=== PATIENT | female | born 1955 | race Caucasian/White ===

== ENCOUNTER 2018-08-11 07:51 | Outpatient (REF) | payer OTHER, SELFPAY ==
[2018-08-11 12:34] LABS: TSH (W/Ref FT4) 1.13 uIU/mL (0.358-3.74)
== END 2018-08-11 08:11 ==
LOC: NCHCN 07:51
PROVIDERS: PCP Nurse Practitioner Family; Visit Provider Nurse Practitioner Family
DX: E03.9 Hypothyroidism, unspecified (principal)
CPT/HCPCS: 84443

== ENCOUNTER 2018-08-25 10:20 | Outpatient (REF) | payer OTHER, SELFPAY ==
--- NOTE | 2018-08-25 08:30 | PAPFT_PTH ---
PATIENT: Hayley Guzman LOC: [facility] U#:[id number] AGE/SX: 63/F ROOM: RE08/25/[address]: Va Noel : 1955 BED: DIS: 08/25/2018 SPEC #: [id number] RECD: 08/25/18 18:01 STATUS: MIRLANDE RENazanin #: [id number] KENDRA: 08/25/18 08:[address]: Va Noel DEPT: [facility] Cytology RECD BY: Batsheva Sosa Tissues: 1 - CX/ENDOCX FOR PAP SMEARS Procedures: PAP THIN PREP/UVM Screening HPV DNA PROBE Comments: [id number]
== END 2018-08-25 10:40 ==
LOC: NCHCN 10:20
PROVIDERS: PCP Nurse Practitioner Family; Visit Provider Nurse Practitioner Family
DX: Z00.00 Encounter for general adult medical examination without abnormal findings (principal); Z12.4 Encounter for screening for malignant neoplasm of cervix; Z11.51 Encounter for screening for human papillomavirus (HPV)
CPT/HCPCS: 88142; 87624

== ENCOUNTER 2018-09-08 07:43 | Outpatient (REF) | payer OTHER, SELFPAY ==
[2018-09-08 13:38] LABS: Calculated LDL 141 mg/dL; Cholesterol 237 mg/dL (50-200); HDL Cholesterol 66 mg/dL (40-60); Triglyceride 153 mg/dL (30-150)
== END 2018-09-08 08:03 ==
LOC: NCHCN 07:43
PROVIDERS: PCP Nurse Practitioner Family; Visit Provider Nurse Practitioner Family
DX: E78.5 Hyperlipidemia, unspecified (principal)
CPT/HCPCS: 80061; 83721

== ENCOUNTER 2018-09-09 00:47 | Outpatient (CLI) | payer OTHER, SELFPAY ==
--- NOTE | 2018-09-09 11:00 | DI.MAMMO_ITS ---
SYMPTOMS/DIAGNOSIS: SCREENING, Z12.39 MAMMOGRAMS: Mammograms were interpreted according to the usual protocol including computer analysis with CAD system, tomosynthesis and C view imaging. The breast tissue is heterogeneously radiodense, which lowers the sensitivity of the study. There is no dominant mass. There are no suspicious calcifications and there has been no significant interval change when compared with prior images. SUMMARY: No evidence of malignancy, category 1. Yearly screening mammography is recommended. Breast density category C. MQSA ASSESSMENT OF FINDINGS: Negative. Category 1. Patient will receive a letter notifying them of these results. Bi-RADS category C. The breasts are heterogeneously dense, which may obscure small masses.
== END 2018-09-09 01:07 ==
PROVIDERS: PCP Nurse Practitioner Family; Visit Provider Nurse Practitioner Family
DX: Z12.31 Encounter for screening mammogram for malignant neoplasm of breast (principal)
CPT/HCPCS: 77063; 77067

== ENCOUNTER 2020-08-29 16:37 | Outpatient (REF) | payer BC, SELFPAY ==
[2020-08-29 20:43] LABS: Hemoglobin A1C 5.8 % (<5.7)
[2020-08-29 21:02] LABS: Anion Gap 12.2 mmol/L (3-11); BUN 15 mg/dL (7-18); CO2 23.8 mmol/L (21.0-32.0); CREATININE 0.9 mg/dL (0.55-1.02); Calcium 9.2 mg/dL (8.5-10.1); Calculated LDL 129 mg/dL (<100); Chloride 105 mmol/L (98-107); Cholesterol 231 mg/dL (<200); Glucose 93 mg/dL (74-106); HDL Cholesterol 60 mg/dL (40-60); Potassium 4.1 mmol/L (3.5-5.1); Sodium 141 mmol/L (136-145); Triglyceride 210 mg/dL (<150)
[2020-08-30 17:41] LABS: TSH 1.57 uIU/mL (0.36-3.74)
== END 2020-08-29 16:38 | disposition home or self-care (01) ==
LOC: NCHCN 16:37
PROVIDERS: PCP Nurse Practitioner Family; Visit Provider Nurse Practitioner Family
DX: Z00.00 Encounter for general adult medical examination without abnormal findings (principal); E78.5 Hyperlipidemia, unspecified; E03.9 Hypothyroidism, unspecified; R73.9 Hyperglycemia, unspecified
CPT/HCPCS: 80048; 80061; 83036; 84443

== ENCOUNTER 2020-09-19 01:32 | Outpatient (CLI) | payer BC, SELFPAY ==
--- NOTE | 2020-09-19 | DI.MAMMO_ITS ---
Exam(s) US BREAST RT LIMITED MG MAMMO SCREENING EXAM: MAMMO SCREENING CLINICAL HISTORY: SCREENING, Z12.39. TECHNIQUE: Craniocaudal and mediolateral oblique Full Field Digital Mammography views with Computer Aided Diagnosis followed by Tomosynthesis and right breast ultrasound. COMPARISON: 2019 mammogram US US BREAST RT LIMITED from 09/19/2020 FINDINGS: Mammography/Tomosynthesis: Masses/Architectural Distortion: Right breast: Dense lobulated and spiculated mass superior right sal ast, at 12 o'clock, in the posterior tissue, measuring approximately 3 cm in greatest dimension.. No additional masses. Left breast: No masses or echotexture distortion seen. Microcalcifictions: No suspicious pleomorphic-type are seen. Skin Thickening/Nipple Retraction: None. Right breast US: Cyst: None. Solid lesions: Irregular hypoechoic shadowing mass measuring 2.9 x 1.9 by 1.7 cm located in the 12 o' clock position 8 cm from the nipple... Ductal dilation: None. IMPRESSION: 1. 3 centimeter suspicious spiculated mass 12 o'clock position posterior right breast. Biopsy is rec ommended for further evaluation. 2. The findings were discussed with the provider Va Noel and the patient on the date of the exa mination. BI-RADS Category 5 - Highly Suggestive of Malignancy: Biopsy recommended Breast Density - Category C - Heterogeneously dense Breast density category C or D implies that the patient has dense breast tissue. Dense breast tissue is very common and is not abnormal but dense breast tissue can make it harder to find cancer on a ma mmogram. Also, dense breast tissue may increase their breast cancer risk. This information about the result of the mammogram report was provided to the patient to raise their awareness. Use this report when you speak with the patient about their risks for breast cancer, which includes their family hist ory. At that time, you may recommend for more screening tests (Ultrasound or MRI) as they might be us eful based on their risk. A negative radiographic report should not delay biopsy if a dominant or clinically suspicious mass is present. Up to ten percent of cancers are not identified on mammography. A negative report may reinforce clinical impression. Adenosis and dense breasts may obscure an underlying neoplasm. False positive reports average 6 to 10%. Patient will receive a letter notifying them of these results.
== END 2020-09-19 01:52 ==
PROVIDERS: PCP Nurse Practitioner Family; Visit Provider Nurse Practitioner Family
DX: Z12.31 Encounter for screening mammogram for malignant neoplasm of breast (principal); R92.8 Other abnormal and inconclusive findings on diagnostic imaging of breast
CPT/HCPCS: 76642; 77063; 77067

== ENCOUNTER 2021-03-20 02:02 | Outpatient (CLI) | payer BC, SELFPAY ==
[2021-03-20 12:05] LABS: Abs Immature Grans 0.01 10^3/uL (0.0-0.06); Absolute Basophil Count 0.01 10^3/uL (0.0-0.2); Absolute Eosinophil Count 0.06 10^3/uL (0.0-0.7); Absolute Lymphocyte Count 1.49 10^3/uL (1.2-3.4); Absolute Monocyte Count 0.46 10^3/uL (0.1-0.8); Absolute Neutrophil Count 5.09 10^3/uL (1.2-6.7); Basophils % 0.1; Eosinophils % 0.8; HCT 45.9 % (36.0-46.0); HGB 14.9 g/dL (11.2-15.7); Immature Grans % 0.1; Lymphocytes % 20.9; MCH 31.2 pg (27.0-33.0); MCHC 32.5 % (32.0-36.0); MCV 96.2 fL (80-95); MPV 9.7 fL (8.0-11.0); Monocytes % 6.5; Neutrophils % 71.6; Nucleated RBC 0 %; Platelet Count 303 10^3/uL (130-400); RBC 4.77 10^6/uL (3.93-5.22); RDW 13.6 % (11.7-14.6); RDW-SD 48.9 fL; WBC 7.12 10^3/uL (4.4-10.8)
[2021-03-20 12:18] LABS: ALT 31 U/L (14-59); AST 23 U/L (15-37); Alkaline Phosphatase 111 U/L (46-116); Anion Gap 11.6 mmol/L (3-11); BUN 16 mg/dL (7-18); Bilirubin, Total 0.4 mg/dL (0.2-1.0); CO2 27.4 mmol/L (21.0-32.0); CREATININE 0.9 mg/dL (0.55-1.02); Calcium 9.3 mg/dL (8.5-10.1); Chloride 103 mmol/L (98-107); Glucose 124 mg/dL (74-106); Potassium 3.8 mmol/L (3.5-5.1); Sodium 142 mmol/L (136-145); Total Protein 8.5 g/dL (6.4-8.2)
== END 2021-03-20 02:03 | disposition home or self-care (01) ==
LOC: LBO 02:02
PROVIDERS: PCP Nurse Practitioner Family; Visit Provider Internal Medicine Medical Oncology
DX: C50.411 Malignant neoplasm of upper-outer quadrant of right female breast (principal); Z17.0 Estrogen receptor positive status [ER+]
CPT/HCPCS: 36415; 80053; 85025

== ENCOUNTER 2021-09-19 12:26 | Outpatient (REF) | payer BC, SELFPAY ==
[2021-09-19 12:48] LABS: ALT 22 U/L (14-59); AST 18 U/L (15-37); Albumin 3.9 g/dL (3.4-5.0); Alkaline Phosphatase 80 U/L (46-116); Anion Gap 11.4 mmol/L (3-11); BUN 18 mg/dL (7-18); Bilirubin, Total 0.5 mg/dL (0.2-1.0); CO2 24.6 mmol/L (21.0-32.0); CREATININE 0.8 mg/dL (0.55-1.02); Chloride 104 mmol/L (98-107); Glucose 111 mg/dL (74-106); Potassium 3.9 mmol/L (3.5-5.1); Sodium 140 mmol/L (136-145); Total Protein 8.1 g/dL (6.4-8.2)
== END 2021-09-19 12:27 | disposition home or self-care (01) ==
LOC: LBN 12:26
PROVIDERS: PCP Nurse Practitioner Family; Visit Provider Internal Medicine Medical Oncology
DX: C50.411 Malignant neoplasm of upper-outer quadrant of right female breast (principal); M81.0 Age-related osteoporosis without current pathological fracture; Z17.0 Estrogen receptor positive status [ER+]
CPT/HCPCS: 80053

== ENCOUNTER 2021-10-09 19:43 | Outpatient (REF) | payer BC, SELFPAY ==
[2021-10-09 14:32] LABS: Hemoglobin A1C 5.8 % (<5.7)
[2021-10-09 14:41] LABS: TSH (W/Ref FT4) 0.31 uIU/mL (0.36-3.74)
[2021-10-09 15:03] LABS: FREE T4 1.48 ng/dL (0.76-1.46)
== END 2021-10-09 19:44 | disposition home or self-care (01) ==
LOC: NCHCN 19:43
PROVIDERS: PCP Nurse Practitioner Family; Visit Provider Nurse Practitioner Family
DX: E03.9 Hypothyroidism, unspecified (principal); R73.03 Prediabetes
CPT/HCPCS: 83036; 84439; 84443

== ENCOUNTER 2021-12-04 18:09 | Outpatient (REF) | payer BC, SELFPAY ==
[2021-12-04 18:44] LABS: Anion Gap 9.9 mmol/L (3-11); BUN 20 mg/dL (7-18); CO2 26.1 mmol/L (21.0-32.0); CREATININE 0.9 mg/dL (0.55-1.02); Calcium 9.3 mg/dL (8.5-10.1); Calculated LDL 131 mg/dL (<100); Chloride 102 mmol/L (98-107); Cholesterol 234 mg/dL (<200); Estimated GFR 70.51 (mL/min/1.73m2); Glucose 110 mg/dL (74-106); HDL Cholesterol 75 mg/dL (40-60); Potassium 4.6 mmol/L (3.5-5.1); Sodium 138 mmol/L (136-145); Triglyceride 140 mg/dL (<150)
== END 2021-12-04 18:10 | disposition home or self-care (01) ==
LOC: NCHCN 18:09
PROVIDERS: PCP Nurse Practitioner Family; Visit Provider Nurse Practitioner Family
DX: R73.03 Prediabetes (principal); R03.0 Elevated blood-pressure reading, without diagnosis of hypertension; Z00.00 Encounter for general adult medical examination without abnormal findings; E78.5 Hyperlipidemia, unspecified
CPT/HCPCS: 80048; 80061

== ENCOUNTER 2022-08-21 03:11 | Outpatient (CLI) | payer MEDICARE, SELFPAY ==
[2022-08-21 07:34] LABS: ALT 23 U/L (14-59); AST 20 U/L (15-37); Albumin 3.9 g/dL (3.4-5.0); Alkaline Phosphatase 95 U/L (46-116); Anion Gap 9.8 mmol/L (3-11); BUN 16 mg/dL (7-18); Bilirubin, Total 0.3 mg/dL (0.2-1.0); CO2 25.2 mmol/L (21.0-32.0); CREATININE 0.9 mg/dL (0.55-1.02); Calcium 9.3 mg/dL (8.5-10.1); Chloride 105 mmol/L (98-107); Estimated GFR 70.07 (mL/min/1.73m2); Glucose 122 mg/dL (74-106); Potassium 4.6 mmol/L (3.5-5.1); Sodium 140 mmol/L (136-145); Total Protein 8.1 g/dL (6.4-8.2)
== END 2022-08-21 03:12 | disposition home or self-care (01) ==
PROVIDERS: Physician Assistant; PCP Nurse Practitioner Family
DX: M81.0 Age-related osteoporosis without current pathological fracture (principal); E03.9 Hypothyroidism, unspecified; Z85.3 Personal history of malignant neoplasm of breast; R73.09 Other abnormal glucose
CPT/HCPCS: 36415; 80053

== ENCOUNTER 2022-12-10 16:05 | Outpatient (REF) | payer MEDICARE, SELFPAY ==
[2022-12-10 19:56] LABS: Abs Immature Grans 0.03 10^3/uL (0.0-0.06); Absolute Basophil Count 0.02 10^3/uL (0.0-0.2); Absolute Monocyte Count 0.49 10^3/uL (0.1-0.8); Absolute Neutrophil Count 5.55 10^3/uL (1.2-6.7); Basophils % 0.2; Eosinophils % 1.2; HCT 44.2 % (36.0-46.0); HGB 14.5 g/dL (11.2-15.7); Immature Grans % 0.4; Lymphocytes % 26.2; MCH 31.2 pg (27.0-33.0); MCHC 32.8 % (32.0-36.0); MCV 95 fL (80-95); MPV 10.1 fL (8.0-11.0); Monocytes % 5.8; Neutrophils % 66.2; Platelet Count 331 10^3/uL (130-400); RBC 4.65 10^6/uL (3.93-5.22); RDW 13.8 % (11.7-14.6); RDW-SD 48.9 fL; WBC 8.39 10^3/uL (4.4-10.8)
[2022-12-10 20:16] LABS: TSH 1.32 uIU/mL (0.36-3.74)
[2022-12-10 20:19] LABS: Hemoglobin A1C 5.9 % (<5.7)
== END 2022-12-10 16:06 | disposition home or self-care (01) ==
LOC: NCHCN 16:05
PROVIDERS: PCP Nurse Practitioner Family; Visit Provider Nurse Practitioner Family
DX: R73.03 Prediabetes (principal); E03.9 Hypothyroidism, unspecified; R53.83 Other fatigue; R03.0 Elevated blood-pressure reading, without diagnosis of hypertension
CPT/HCPCS: 83036; 84443; 85025

== ENCOUNTER 2023-02-25 04:39 | Outpatient (CLI) | payer MEDICARE, SELFPAY ==
[2023-02-25 12:27] LABS: ALT 23 U/L (14-59); AST 18 U/L (15-37); Alkaline Phosphatase 85 U/L (46-116); Anion Gap 9.8 mmol/L (3-11); BUN 20 mg/dL (7-18); Bilirubin, Total 0.3 mg/dL (0.2-1.0); CO2 28.2 mmol/L (21.0-32.0); Chloride 104 mmol/L (98-107); Estimated GFR 61.75 (mL/min/1.73m2); Glucose 121 mg/dL (74-106); Potassium 3.8 mmol/L (3.5-5.1); Sodium 142 mmol/L (136-145); Total Protein 8.5 g/dL (6.4-8.2)
== END 2023-02-25 04:40 | disposition home or self-care (01) ==
LOC: LBO 04:39
PROVIDERS: PCP Nurse Practitioner Family; Visit Provider Physician Assistant
DX: C50.411 Malignant neoplasm of upper-outer quadrant of right female breast (principal); Z17.0 Estrogen receptor positive status [ER+]
CPT/HCPCS: 36415; 80053

== ENCOUNTER → 2023-05-14 02:56 | Outpatient (CLI) | payer MEDICARE, SELFPAY ==
--- NOTE | 2023-05-14 | DI.MAMMO_ITS ---
Exam(s) MG MAMMO SCREENING 60 MIN DUR EXAM: MG MAMMO SCREENING 60 MIN DUR CLINICAL HISTORY: RT BREAST CANCER C50.411 Z17.0 SCREENING MAMMO FOR BREAST CANCER Z12.31 TECHNIQUE: Bilateral full field digital CC and MLO mammographic images were obtained with 3D tomosyn thesis and utilizing computer aided detection (CAD). COMPARISON: Available for comparison. FINDINGS: Masses/Architectural Distortion: The patient is status post right lumpectomy. No suspicious nodules are seen. No new areas of architectural distortion are present. Microcalcifications: No suspicious pleomorphic-type are seen. Skin Thickening/Nipple Retraction: None. IMPRESSION: 1. No significant interval change with no specific features of malignancy noted. 2. Unless there is more urgent need, screening mammography is recommended, as per [employer] guidelines. BI-RADS Category 2 - Benign Findings Breast Density - Category C - Heterogeneously dense Breast density category C or D implies that the patient has dense breast tissue. Dense breast tissue is very common and is not abnormal but dense breast tissue can make it harder to find cancer on a ma mmogram. Also, dense breast tissue may increase their breast cancer risk. This information about the result of the mammogram report was provided to the patient to raise their awareness. Use this report when you speak with the patient about their risks for breast cancer, which includes their family hist ory. At that time, you may recommend for more screening tests (Ultrasound or MRI) as they might be us eful based on their risk. A negative radiographic report should not delay biopsy if a dominant or clinically suspicious mass is present. Up to ten percent of cancers are not identified on mammography. A negative report may reinforce clinical impression. Adenosis and dense breasts may obscure an underlying neoplasm. False positive reports average 6 to 10%. Patient will receive a letter notifying them of these results.
== END ==
PROVIDERS: Visit Provider Nurse Practitioner Family
DX: Z12.31 Encounter for screening mammogram for malignant neoplasm of breast (principal)
CPT/HCPCS: 77063; 77067

== ENCOUNTER → 2023-06-26 03:15 | Outpatient (CLI) | payer MEDICARE, SELFPAY ==
--- NOTE | 2023-06-26 | DI.DEXA_ITS ---
Exam(s) XR DEXA BONE DENSITY W/WO PETRONA EXAM: XR DEXA BONE DENSITY W/WO PETRONA CLINICAL HISTORY: Z79.811,M85.80, C50.411,Z17.0 [facility] use aromatase inhibitor,Osteopenia, TECHNIQUE: COMPARISON: DX PETRONA from 07/11/2008 FINDINGS: Lateral Spine Image: Unremarkable. No compression deformities identified. Left hip: Total T-Score: -0.9. This compares to 0.2 on the prior examination. Total Z-Score: 0.5 T- and Z-scores: No evidence of osteoporosis. Lumbar Spine: Total T-Score: -1.1. This compares to -1.9 on the prior examination. Total Z-Score: 0.8 T- and Z-scores: Findings are consistent with osteopenia. Osteoporosis is seen in the L1 and L2 vert ebral bodies with T-scores of -2.7 and -2.5 respectively. Left forearm: There is osteoporosis present with a total T-score of -3.0 and a Z-score of -1.2. IMPRESSION: Findings of osteoporosis in the lumbar spine and left forearm as described above.
== END ==
PROVIDERS: PCP Nurse Practitioner Family; Visit Provider Nurse Practitioner Family
DX: Z79.811 Long term (current) use of aromatase inhibitors (principal); Z13.820 Encounter for screening for osteoporosis; M81.0 Age-related osteoporosis without current pathological fracture
CPT/HCPCS: 77080

== ENCOUNTER 2023-12-16 13:58 | Outpatient (REF) | payer MEDICARE, SELFPAY ==
[2023-12-16 20:08] LABS: Abs Immature Grans 0.03 10^3/uL (0.0-0.06); Absolute Basophil Count 0.02 10^3/uL (0.0-0.2); Absolute Eosinophil Count 0.07 10^3/uL (0.0-0.7); Absolute Monocyte Count 0.45 10^3/uL (0.1-0.8); Absolute Neutrophil Count 5.06 10^3/uL (1.2-6.7); Basophils % 0.3 %; Eosinophils % 0.9 %; HCT 44.3 % (36.0-46.0); HGB 14.5 g/dL (11.2-15.7); Immature Grans % 0.4 %; Lymphocytes % 26.2 %; MCH 31.8 pg (27.0-33.0); MCHC 32.7 % (32.0-36.0); MCV 97 fL (80-95); MPV 10.1 fL (8.0-11.0); Monocytes % 5.9 %; Neutrophils % 66.3 %; Platelet Count 330 10^3/uL (130-400); RBC 4.56 10^6/uL (3.93-5.22); RDW 13.2 % (11.7-14.6); RDW-SD 47.8 fL; WBC 7.63 10^3/uL (4.4-10.8)
[2023-12-16 20:19] LABS: Hemoglobin A1C 5.8 % (<5.7)
[2023-12-16 20:47] LABS: Calculated LDL 113 mg/dL (<100); Cholesterol 209 mg/dL (<200); HDL Cholesterol 76 mg/dL (40-60); TSH 1.07 uIU/mL (0.36-3.74); Triglyceride 101 mg/dL (<150)
[2023-12-16 21:04] LABS: FREE T4 1.05 ng/dL (0.76-1.46)
== END 2023-12-16 13:59 | disposition home or self-care (01) ==
LOC: NCHCN 13:58
PROVIDERS: PCP Nurse Practitioner Family; Visit Provider Nurse Practitioner Family
DX: E78.5 Hyperlipidemia, unspecified (principal); R73.03 Prediabetes
CPT/HCPCS: 80061; 83036; 84439; 84443; 85025

== ENCOUNTER 2024-05-18 00:47 | Outpatient (CLI) | payer MEDICARE, SELFPAY ==
--- NOTE | 2024-05-18 | DI.MAMMO_ITS ---
Exam(s) MG MAMMO SCREENING 60 MIN DUR EXAM: MG MAMMO SCREENING 60 MIN DUR CLINICAL HISTORY: Z12.31,SCREENING,H/O RT BREAST CA,Z17.0 TECHNIQUE: Mammograms were interpreted according to the usual protocol including computer analysis w [employer] CAD system, tomosynthesis and C-view imaging. COMPARISON: 2018 through 2023 FINDINGS: The breasts are composed of heterogeneously dense fibroglandular densities, Breast Density category C . No suspicious masses or suspicious microcalcifications are seen. Surgical clips, scarring and area o f fat necrosis are noted in the upper right breast related to prior lumpectomy. No skin thickening or abnormal axillary lymph nodes are seen. There has been no significant change from prior exams. IMPRESSION: BI-RADS Category 2 - Negative Mammogram with benign findings. Yearly screening mammography is recomm ended. Breast Density Category C, heterogeneously Dense. The mammogram demonstrates the patient's breast tissue is dense. Dense breast tissue is very common a nd is not abnormal but dense breast tissue can make it harder to find cancer on a mammogram. Also, de nse breast tissue may increase breast cancer risk. This information about the result of the mammogram report was provided to the patient to raise their awareness. Use this report when you speak with the patient about their risks for breast cancer, which includes their family history. At that time, you may recommend additional screening tests (Ultrasound or MRI) as they might be useful based on their r isk. A negative radiographic report should not delay biopsy if a dominant or clinically suspicious mass is present. Up to ten percent of cancers are not identified on mammography. A negative report may reinforce clinical impression. Adenosis and dense breasts may obscure an underlying neoplasm. False positive reports average 6 to 10%.
== END 2024-05-18 01:07 ==
PROVIDERS: PCP Nurse Practitioner Family; Visit Provider Nurse Practitioner Family
DX: Z12.31 Encounter for screening mammogram for malignant neoplasm of breast (principal); R92.333 Mammographic heterogeneous density, bilateral breasts
CPT/HCPCS: 77063; 77067

== ENCOUNTER 2024-06-23 03:21 | Outpatient (CLI) | payer MEDICARE, SELFPAY ==
[2024-06-23 13:43] LABS: Abs Immature Grans 0.02 10^3/uL (0.0-0.06); Absolute Basophil Count 0.02 10^3/uL (0.0-0.2); Absolute Lymphocyte Count 1.78 10^3/uL (1.2-3.4); Absolute Monocyte Count 0.49 10^3/uL (0.1-0.8); Absolute Neutrophil Count 4.52 10^3/uL (1.2-6.7); Basophils % 0.3 %; Eosinophils % 1.4 %; HCT 42.3 % (36.0-46.0); HGB 13.9 g/dL (11.2-15.7); Immature Grans % 0.3 %; Lymphocytes % 25.7 %; MCH 31.6 pg (27.0-33.0); MCHC 32.9 % (32.0-36.0); MCV 96 fL (80-95); MPV 9.4 fL (8.0-11.0); Monocytes % 7.1 %; Neutrophils % 65.2 %; Platelet Count 280 10^3/uL (130-400); RDW 13.4 % (11.7-14.6); RDW-SD 47.7 fL; WBC 6.93 10^3/uL (4.4-10.8)
[2024-06-23 14:01] LABS: ALT 20 U/L (14-59); AST 19 U/L (15-37); Albumin 3.9 g/dL (3.4-5.0); Alkaline Phosphatase 92 U/L (46-116); BUN 24 mg/dL (7-18); Bilirubin, Total 0.3 mg/dL (0.2-1.0); CREATININE 1.1 mg/dL (0.55-1.02); Calcium 9.6 mg/dL (8.5-10.1); Chloride 104 mmol/L (98-107); Estimated GFR 54.39 (mL/min/1.73m2); Glucose 102 mg/dL (74-106); Potassium 3.9 mmol/L (3.5-5.1); Sodium 141 mmol/L (136-145); Total Protein 7.9 g/dL (6.4-8.2)
== END 2024-06-23 03:22 | disposition home or self-care (01) ==
LOC: LBO 03:21
PROVIDERS: PCP Nurse Practitioner Family; Visit Provider Nurse Practitioner Family
DX: C50.411 Malignant neoplasm of upper-outer quadrant of right female breast (principal)
CPT/HCPCS: 36415; 80053; 85025

== ENCOUNTER 2024-07-27 01:32 | Outpatient (CLI) | payer MEDICARE, SELFPAY ==
--- NOTE | 2024-07-27 | DI.DEXA_ITS ---
Exam(s) XR DEXA BONE DENSITY W/WO PETRONA EXAM: XR DEXA BONE DENSITY W/WO PETRONA CLINICAL HISTORY: Long-term current use of aromatase inhibitor, Z78.811; malignant neoplasm TECHNIQUE: [employer] Horizon C densitometer analysis of left hip, lumbar spine and left forearm. Lateral survey image of the thoracic and lumbar spine. COMPARISON: DX PETRONA from 07/11/2008 CR XR DEXA BONE DENSITY W/WO PETRONA from 06/26/2023 FINDINGS: Lateral view of the thoracic and lumbar spine shows no evidence of compression fractures. Bone mineral density measurements of the lumbar spine correspond to a total T- score of 0.2, in the normal range. There are significant degenerative changes at L3 and L4 with sclerosis, increasing bone mineral density measurements. The L1 vertebral body was excluded from the analysis. There has been 27.7 percent decrease in total spine bone mineral density compared with 2008. Bone mineral density measurements of the left hip correspond to a total T-score of -1.3. The femoral neck T-score is -1.7, in the osteopenic range. This represents a 6.2 percent decrease from 2023 and 19.4 percent decrease from 2008. . Theleft forearm bone mineral density measurements correspond to a T-score of the distal 3rd of negative 3.5, in the osteoporotic range. This represents a 3.1 percent decrease from 2023. The forearm was not analyzed in 2008.. IMPRESSION: Osteoporosis of the forearm. Osteopenia of the hip. Normal bone mineral density of the spine.
== END 2024-07-27 01:52 ==
LOC: DI 01:32
PROVIDERS: PCP Nurse Practitioner Family; Visit Provider Nurse Practitioner Family
DX: M85.852 Other specified disorders of bone density and structure, left thigh (principal); M81.0 Age-related osteoporosis without current pathological fracture; Z79.811 Long term (current) use of aromatase inhibitors
CPT/HCPCS: 77080

== ENCOUNTER 2024-12-06 11:12 | Outpatient (REF) | payer MEDICARE, SELFPAY ==
[2024-12-06 15:50] LABS: Hemoglobin A1C 5.7 % (<5.7)
[2024-12-06 16:51] LABS: T4 9.4 ug/dL (4.7-13.3); TSH 0.42 uIU/mL (0.36-3.74); Vitamin B12 684 pg/mL (193-986)
== END 2024-12-06 11:13 | disposition home or self-care (01) ==
LOC: NCHCN 11:12
PROVIDERS: PCP Student in an Organized Health Care Education/Training Program; Visit Provider Student in an Organized Health Care Education/Training Program
DX: E03.9 Hypothyroidism, unspecified (principal); R73.03 Prediabetes; D75.89 Other specified diseases of blood and blood-forming organs
CPT/HCPCS: 82607; 83036; 84436; 84443